=== PATIENT | female | born 2000 | race Two or more races ===

== ENCOUNTER → 2024-09-11 | Outpatient (CLI) | payer BC, MEDICAID, SELFPAY ==
[2024-09-11 16:26] LABS: Glucose,1 Hour PP 50gm Dose 100 mg/dL (80-140)
== END | disposition home or self-care (01) ==
LOC: SLDO 11:58
PROVIDERS: Referring Provider Specialist; Visit Provider Specialist
DX: Z34.82 Encounter for supervision of other normal pregnancy, second trimester (principal)
CPT/HCPCS: 36415; 82950

== ENCOUNTER → 2024-09-24 | Outpatient (CLI) | payer BC, MEDICAID, SELFPAY ==
[2024-09-24 17:40] LABS: Basophils % (Auto) 0 % (0-2.5); Eosinophils # (Auto) 0.1 Thou/mm3 (0.0-0.5); Eosinophils % (Auto) 1 % (0-10); Hematocrit 38.5 % (36.0-46.0); Hemoglobin 12.4 g/dL (12.0-16.0); Immature Granulocytes % (Auto) 0 % (0-0); Immature Granulocytes Auto 0.01 Thou/mm3 (0.00-0.00); Lymphocytes # (Auto) 1.5 Thou/mm3 (1.0-4.8); Lymphocytes % (Auto) 22 % (10-50); Mean Corpuscular HGB Conc 32.2 g/dl (31.0-37.0); Mean Corpuscular Hemoglobin 26.6 pg (25.0-35.0); Mean Corpuscular Volume 82 fL (80-100); Monocytes # (Auto) 0.4 Thou/mm3 (0.0-0.8); Monocytes % (Auto) 6 % (0-12); Neutrophils % (Auto) 71 % (37-80); Nucleated Red Blood Cell % 0 /100 WBC (0); Platelet Count 145 Thou/mm3 (140-440); RDW Standard Deviation 39.8 fL (36.4-46.3); Red Blood Count 4.67 Miln/mm3 (4.00-5.20); White Blood Count 7.1 Thou/mm3 (3.6-11.0)
[2024-09-24 18:18] LABS: Syphilis Nonreactive (Nonreactive)
== END | disposition home or self-care (01) ==
LOC: SLDO 16:41
PROVIDERS: Referring Provider Specialist; Visit Provider Specialist
DX: Z34.83 Encounter for supervision of other normal pregnancy, third trimester (principal)
CPT/HCPCS: 36415; 85025; 86780

== ENCOUNTER → 2024-09-25 | Outpatient (CLI) | payer BC, MEDICAID, SELFPAY ==
[2024-09-25 11:12] LABS: Quantiferon-TB* See Sep Rpt
== END | disposition home or self-care (01) ==
LOC: COPL 10:47
PROVIDERS: PCP Family Medicine; Referring Provider Specialist; Visit Provider Specialist
DX: Z34.82 Encounter for supervision of other normal pregnancy, second trimester (principal)
CPT/HCPCS: 86480

== ENCOUNTER 2024-11-26 05:23 | Inpatient (IN) | payer BC, MEDICAID, SELFPAY ==
[2024-11-26] VITALS (57 sets, daily range): BP systolic 80–139; BP diastolic 49–87; PULSE 60–133; RESP 17–99; TEMP 36.4–36.9; O2SAT 96–98; BMI 40.1
[2024-11-26] MEDS: RINGERS LACTATED 1000 ML 1,000 ML 999 ML IV ×2 (06:05→08:22)
[2024-11-26 06:12] LABS: Basophils % (Auto) 0 % (0-2.5); Eosinophils # (Auto) 0.1 Thou/mm3 (0.0-0.5); Eosinophils % (Auto) 1 % (0-10); Hematocrit 37.4 % (36.0-46.0); Hemoglobin 12.3 g/dL (12.0-16.0); Immature Granulocytes % (Auto) 0 % (0-0); Immature Granulocytes Auto 0.03 Thou/mm3 (0.00-0.00); Lymphocytes # (Auto) 2.8 Thou/mm3 (1.0-4.8); Lymphocytes % (Auto) 33 % (10-50); Mean Corpuscular HGB Conc 32.9 g/dl (31.0-37.0); Mean Corpuscular Hemoglobin 25.2 pg (25.0-35.0); Mean Corpuscular Volume 77 fL (80-100); Monocytes # (Auto) 0.4 Thou/mm3 (0.0-0.8); Monocytes % (Auto) 5 % (0-12); Neutrophils # (Auto) 5.1 Thou/mm3 (1.8-7.7); Neutrophils % (Auto) 61 % (37-80); Nucleated Red Blood Cell % 0 /100 WBC (0); Platelet Count 121 Thou/mm3 (140-440); RDW Standard Deviation 39.5 fL (36.4-46.3); Red Blood Count 4.89 Miln/mm3 (4.00-5.20); White Blood Count 8.4 Thou/mm3 (3.6-11.0)
[2024-11-26 06:53] LABS: Syphilis Nonreactive (Nonreactive)
--- NOTE | 2024-11-26 06:56 | PD.LDHP ---
Documentation for date of: 11/26/24 OB Labor/Induct. HPI History of Present Illness Comments: H and P dictated on STAT line #9 in [place] [id number] Meds Home Medications and Allergies Allergies Allergy/AdvReac Type Severity Reaction Status Date / Time ibuprofen Allergy Mild nose bleeds Verified 04/02/24 15:17 aspirin AdvReac Intermediate NOSE BLEEDS Verified 04/02/24 15:17 OB Exam Physical Exam Vital signs: Pulse BP 71 124/76 11/26/24 05:35 11/26/24 05:35 OB Results Labs 11/26/24 05:50 Labs: Short CBC 11/26/24 Range/Units 05:50 WBC 8.4 (3.6-11.0) Thou/mm3 Hgb 12.3 (12.0-16.0) g/dL Hct 37.4 (36.0-46.0) % Plt Count 121 L (140-440) Thou/mm3
--- NOTE | 2024-11-26 06:58 | ESHP_ITS ---
RE: DARRYL ROMERO : 2000 DATE OF ADMISSION: 11/26/2024 HISTORY OF PRESENT ILLNESS: This is a 24-year-old 2, para 1 with a due date of 11/29/2024 with intrauterine of 39 weeks and 4 days who presents to labor and delivery complaining of contractions and is noted to be in early labor. Her care was complicated by gestational thrombocytopenia with her lowest platelet count 113,000. The patient has no history of bleeding problems and her platelet count with her last delivery decreased to 130,000 by the time she went into labor. She has a history of a previous complicated by gestational hypertension; however, her current has only seen mild systolic elevations of her blood pressure. Her 24-hour urine collection on 10/12 showed 81 mg of protein over 24 hours. ALLERGIES: IBUPROFEN. MEDICATIONS: 1. multivitamin 1 p.o. daily. 2. Aspirin 81 mg one p.o. daily. PAST MEDICAL HISTORY: Gestational thrombocytopenia, gestational hypertension. SOCIAL HISTORY: She denies any alcohol, drug use, or smoking. FAMILY HISTORY: Father and paternal grandmother have diabetes and heart disease. OBSTETRIC HISTORY: In 2021, 40-week normal vaginal delivery, 6 pounds 3 ounce female, no complications. PAST SURGICAL HISTORY: Denies. REVIEW OF SYSTEMS: She denies any chest pain, palpitations, cough, fever, shortness of breath, or lower extremity pain. She denies any headache, change in vision, or right upper quadrant pain. PHYSICAL EXAMINATION: VITAL SIGNS: Blood pressure 127/74, heart rate 88, respirations 18, temperature 98.2 degrees, weight 195 pounds. HEENT: Oropharynx and sclerae are clear. LUNGS: Clear to auscultation bilaterally. HEART: Regular rate and rhythm. ABDOMEN: Gravid term size consistent with estimated weight of 7.25 pounds. PELVIC: See RN notes. EXTREMITIES: Nontender. SKIN: No gross rashes or lesions. NEUROLOGIC: No focal deficit. ASSESSMENT AND PLAN: Intrauterine at 39 weeks and 4 days, early labor, gestational thrombocytopenia, anticipate spontaneous vaginal delivery. Informed consent was obtained. The patient was made aware of the risks, complications, alternatives, and benefits of operative vaginal delivery and delivery. She agrees with these modes of delivery if indicated. DT: 06:47:23 TT: 06:57:00 Ref: [id number] - TID: [id number]
[2024-11-26] MEDS: MINERAL OIL 30 ML UDC TOP (11:44)
[2024-11-26] MEDS: OXYTOCIN in NS 20 units 20 UNIT/1,000 ML BAG 125 UNIT IV (11:51)
--- NOTE | 2024-11-26 12:11 | ESDS_ITS ---
DS: Providers Provider Date of admission: 11/26/24 05:52 Primary care physician: Physician No Primary/Family Admitting Provider: Gama Barr MD Attending Provider on Admission: Gama Barr MD Attending Provider on DC: Gama Barr MD Discharging Provider: Gama Barr MD DS: Diagnosis Problem List Completed Was Problem List Reviewed/Reconciled?: Yes Summary/Hosp Course Time Spent with Patient Time attestation: Total time spent providing and/or coordinating discharge services: Exam Vital Signs Temp Pulse Resp BP 97.9 F 88 17 123/68 11/26/24 09:17 11/26/24 12:05 11/26/24 09:17 11/26/24 12:05 Discharge Plan Plan Patient Disposition: HOME (Self Care) Patient condition on transfer: Stable Prescriptions/Referrals Prescriptions/Med Rec: New acetaminophen 500 mg capsule 500 mg PO Q6H PRN (Reason: pain) Qty: 20 0RF Referrals: No Primary/Family,Physician [Primary Care Provider] - Patient/Caregiver Discharge Instructions Discharge Activity: activity as tolerated Other Discharge Activity Instructions:: Follow up office 6 weeks Print Language: Amharic Stand Alone Forms: Dariana Award Info., Patient Portal Info Letter, Work/Release Restrictions Discharge Order Discharge Orders: Discharge (Routine); Ordered 11/27/24 Ordered By: Gama Barr Planned Discharge Date 11/27/24
--- NOTE | 2024-11-26 12:11 | PD.LDDELS ---
Data (Estevez) Data Hx Section: No : 2 Term: 1 : 0 : 0 Delivery Data (Estevez) Delivery Data EDC: 11/29/24 EDC calculated by:: LMP/early US confirmation Gestational age (weeks): 39 Gestational age (days): 4 Delivered by: Regina Gonzalez Delivery Method Delivery: Vaginal Delivery Type: Spontaneous Presentation: Vertex Position: OA Anesthesia Type Primary Anesthesia: Epidural Placenta Placenta Delivery: Spontaneous Placenta Cultures Obtained: No Placenta Sent for Examination: No Cord Sample: Cord Blood Obtained EBL Estimated blood loss (ml): 150 Umbilical Cord Nuchal Cord: None Additional Procedures None Complications Complications: None Data (Estevez) Data Gender: Female
--- NOTE | 2024-11-26 14:01 | PC.NURSE ---
Pt to the bathroom to void with assistance x1 by RN. Pt voided. Pericare, pads, briefs and new gown placed. Dermoplast applied to perineum. Recovery completed. Pt's bleeding and VSS. Pt assisted to sit on the edge of the bed while Zulema Steady is put in place to transport patient to 466. Pt assisted to 466 while FOB pushes baby in bassinet. Pt assisted into bed after transport. FOB went back to 457 to retrieve the rest of the pt's belongings. SBAR given to Bk Montemayor RN. 14:06 RN is signing off of pt care at this time. FOB back in PP room with all of their belongings.
[2024-11-26 17:52] LABS: Basophils % (Auto) 0 % (0-2.5); Eosinophils % (Auto) 0 % (0-10); Hematocrit 32.4 % (36.0-46.0); Hemoglobin 10.7 g/dL (12.0-16.0); Immature Granulocytes % (Auto) 0 % (0-0); Immature Granulocytes Auto 0.03 Thou/mm3 (0.00-0.00); Lymphocytes # (Auto) 1.6 Thou/mm3 (1.0-4.8); Lymphocytes % (Auto) 14 % (10-50); Mean Corpuscular Hemoglobin 25.2 pg (25.0-35.0); Mean Corpuscular Volume 76 fL (80-100); Monocytes # (Auto) 0.5 Thou/mm3 (0.0-0.8); Monocytes % (Auto) 4 % (0-12); Neutrophils # (Auto) 9.4 Thou/mm3 (1.8-7.7); Neutrophils % (Auto) 82 % (37-80); Nucleated Red Blood Cell % 0 /100 WBC (0); Platelet Count 118 Thou/mm3 (140-440); Red Blood Count 4.24 Miln/mm3 (4.00-5.20); White Blood Count 11.5 Thou/mm3 (3.6-11.0)
[2024-11-26] MEDS: ACETAMINOPHEN 325 MG TABLET 650 MG PO (21:34)
[2024-11-27 01:00] VITALS: BP 100/59; PULSE 67; RESP 20; TEMP 36.5; O2SAT 98
[2024-11-27 04:41] VITALS: BP 104/69; PULSE 77; RESP 22; TEMP 36.4; O2SAT 99
[2024-11-27 07:30] VITALS: BP 115/78; PULSE 74; RESP 20; TEMP 36.5; O2SAT 99
--- NOTE | 2024-11-27 07:31 | PD.LDPPPRG ---
Subjective Subjective Interval history: Patient denies any problem complaint Exam Vital Signs Temp Pulse Resp BP Pulse Ox O2 Del Method 97.6 F 77 22 H 104/69 99 Room Air 11/27/24 04:41 11/27/24 04:41 11/27/24 04:41 11/27/24 04:41 11/27/24 04:41 11/27/24 04:41 Routine Respiratory Exam Comments: Clear to auscultation Routine Cardiovascular Exam Comments: Regular rate and rhythm Routine Abdominal Exam Comments: Fundus is firm nontender Routine Extremities Exam Comments: Nontender Objective Labs 11/26/24 17:40 Labs: Laboratory Results - last 24 hr 11/26/24 17:40 WBC 11.5 H RBC 4.24 Hgb 10.7 L Hct 32.4 L MCV 76 L MCH 25.2 MCHC 33.0 RDW Std Deviation 40.0 Plt Count 118 L Neut % (Auto) 82 H Lymph % (Auto) 14 [place] % (Auto) 4 Eos % (Auto) 0 Baso % (Auto) 0 Neut # (Auto) 9.4 H Lymph # (Auto) 1.6 [place] # (Auto) 0.5 Eos # (Auto) 0.0 Baso # (Auto) 0.0 Immature Gran # (Auto) 0.03 H Absolute Nucleated RBC 0.00 Immature Gran % 0 Nucleated RBC % 0 Assessment & Plan Assessment Comment Assessment comment: day #1 status spontaneous vaginal delivery Plan Comment Plan Comment: Discharge home Discharge instructions given Follow-up in the office in 6 weeks Time Spent With Patient Time: Total time spent is greater than 50% in coordination of care (as documented) at patient's floor/unit and/or counseling patient:
[2024-11-27 11:20] VITALS: BP 95/65; PULSE 82; RESP 16; TEMP 36.6; O2SAT 98
== END 2024-11-27 13:05 | disposition home or self-care (01) | DRG 807 ==
LOC: S4SX 12:09 → S4NX 14:05
PROVIDERS: Admitting Provider Specialist; Visit Provider Specialist
DX: O99.12 Other diseases of the blood and blood-forming organs and certain disorders involving the immune mechanism complicating childbirth (principal); Z37.0 Single live birth; D69.59 Other secondary thrombocytopenia; Z3A.39 39 weeks gestation of pregnancy; Z86.32 Personal history of gestational diabetes; Z88.6 Allergy status to analgesic agent
CPT/HCPCS: 36415; 85025; 86780; 86850; 86900; 86901; J2590; J2795; J3010; J7120; A9270